=== PATIENT | female | born 1990 | race Caucasian/White ===

== ENCOUNTER 2019-01-16 21:37 | Emergency (ER) | payer OTHER ==
[~2019-01-16 21:37] MED LIST: PENI500T2 PO; VICOT PO
== END 2019-01-16 22:10 | disposition left against medical advice (07) ==
LOC: EMS 21:40
DX: F41.9 Anxiety disorder, unspecified (principal); R11.10 Vomiting, unspecified; R00.2 Palpitations; Z53.21 Procedure and treatment not carried out due to patient leaving prior to being seen by health care provider